=== PATIENT | female | born 1960 | race Caucasian/White ===

== ENCOUNTER → 2017-02-25 | Outpatient (CLI) | payer OTHER ==
[~2017-02-25] MED LIST: ACET-1256 PO; ASPEC325 PO; DEXT1CAP PO; FRRG PO; MELO15TA4 PO
--- NOTE | 2017-02-25 17:52 | DIAGNOSTIC IMAGING REPORT ---
RIGHT RIBS UNILATERAL WITH PA CHEST CLINICAL HISTORY: Right-sided rib pain. COMPARISON STUDY: No previous studies for comparison. FINDINGS: The erect chest reveals no pneumothorax. There is no focal pulmonary consolidation. There are no pleural effusions. No right-sided rib fractures are visualized. No destructive lesions are visualized on conventional radiographic imaging. IMPRESSION: No evidence of pneumothorax. No right-sided rib fractures are visualized. Electronically signed by: Guido Oneil M.D. 02/25/2017 5:51 PM Dictated Date/Time: 02/25/2017 5:48 PM
--- NOTE | 2017-02-25 17:55 | DIAGNOSTIC IMAGING REPORT ---
L-SPINE MIN 4 VIEWS ROUTINE CLINICAL HISTORY: Right-sided low back pain COMPARISON STUDY: No previous studies for comparison. FINDINGS: There are moderate multilevel degenerative changes present. No acute fractures or traumatic subluxations are visualized. There are prominent anterior and lateral osteophytic spurs. There is slight narrowing of the AP diameter of the spinal canal. Underlying spinal stenosis most be considered. IMPRESSION: 1. Moderate multilevel degenerative change 2. No acute fractures or subluxations identified Electronically signed by: Guido Oneil M.D. 02/25/2017 5:54 PM Dictated Date/Time: 02/25/2017 5:53 PM
== END | disposition home or self-care (01) ==
LOC: C.RAD 16:42
PROVIDERS: ATTEND Physician Assistant Medical
DX: R07.81 Pleurodynia (principal); M54.5 Low back pain